=== PATIENT | female | born 1930 | race Hispanic/Latino ===

== ENCOUNTER 2018-02-04 22:47 | Emergency (ER) | payer MEDICARE ==
[2018-02-04 23:00] VITALS: BMI 24.4
[2018-02-04 23:01] VITALS: RESP 18
[2018-02-04] MEDS ORDERED: TDAP Vaccine 0.5 mL Syr IM ONE (23:07)
--- NOTE | 2018-02-04 23:14 | ED PDOC ---
Arrival/HPI - General Chief Complaint: Trauma Time Seen by Provider: 02/04/18 23:06 Historian: Patient - History of Present Illness Narrative History of Present Illness (Text): 02/04/18 23:14 87yr old female presents today with head injury and forehead laceration s/p injury. pt states she was walking and missed the last step and fell forward landing into a chain link fence hitting her head and bracing her fall with her hands. pt denies LOC. pt c/o headache. pt denies dizziness or weakness. pt states she was feeling fine, just missed the last step while walking in the dark and trying to talk to her friends. pt denies cp or sob. pt denies dizziness or weakness. no neck or back pain. pt denies numbness, weakness, tingling in the extremities. pt denies abdominal pain. Time/Duration: Prior to Arrival Symptom Onset: Sudden Symptom Course: Improving Quality: Aching Severity Level: Mild Past Medical History - Provider Review Nursing Documentation Reviewed: Yes - Travel History Have you recently traveled outside [place] w/in the past 3 mons?: No - Tetanus Immunization Tetanus Immunization: Unknown - Reproductive Menopause: Yes - Cardiac Hx Pacemaker: No - Neurological Hx Paralysis: No - Hematological/Oncological Hx Blood Transfusions: No Hx Blood Transfusion Reaction: No - Musculoskeletal/Rheumatological Hx Musculoskeletal Disorders: Yes - Psychiatric Hx Emotional Abuse: No Hx Physical Abuse: No Hx Substance Use: No - Surgical History Other/Comment: Rt hip replacement - Anesthesia Hx Anesthesia: Yes Hx Anesthesia Reactions: No Hx Malignant Hyperthermia: No - Suicidal Assessment Feels Threatened In Home Enviroment: No Family/Social History - Physician Review Nursing Documentation Reviewed: Yes Family/Social History: Unknown Family HX Smoking Status: Never Smoked Hx Alcohol Use: No Hx Substance Use: No Allergies/Home Meds Allergies/Adverse Reactions: Allergies No Known Allergies Allergy (Verified 03/19/14 11:35) Home Medications: Home Meds Medication Instructions Recorded Confirmed Clorazepate Dipotassium 3.75 mg PO PRN PRN 11/24/15 02/04/18 [Tranxene-T] Iron/Folate No.6/Mv,Mins No.40 1 each PO DAILY 11/24/15 02/04/18 [Corvite Fe Tablet] Simvastatin [Zocor] 10 mg PO DAILY 11/24/15 02/04/18 Review of Systems - Review of Systems Constitutional: absent: Fatigue, Fevers Eyes: absent: Vision Changes, Photophobia, Eye Pain ENT: absent: Sore Throat, Sinus Congestion Respiratory: absent: SOB, Cough Cardiovascular: absent: Chest Pain, Palpitations Gastrointestinal: absent: Abdominal Pain, Nausea, Vomiting Genitourinary Female: absent: Dysuria Musculoskeletal: absent: Back Pain, Neck Pain Skin: Laceration Neurological: Headache. absent: Dizziness Psychiatric: absent: Anxiety, Depression Physical Exam Vital Signs Reviewed: Yes Vital Signs Temp Pulse Resp BP Pulse Ox 02/05/18 00:46 98 F 89 18 142/87 98 02/05/18 00:29 98.2 F 95 H 18 142/82 96 02/04/18 22:59 98.1 F 102 H 18 167/82 H 95 Temperature: Afebrile Blood Pressure: Hypertensive Pulse: Tachycardic Respiratory Rate: Normal Appearance: Positive for: Well-Appearing, Non-Toxic, Comfortable Pain Distress: None Mental Status: Positive for: Alert and Oriented X 3 - Systems Exam Head: Present: Tenderness, Swelling, Ecchymosis, Laceration (there is a 1.5cm linear superficial laceration along mid forehead; no active bleeding; + quarter sized hematoma noted to left side of forehead. ) Pupils: Present: PERRL Extroacular Muscles: Present: EOMI Conjunctiva: Present: Normal Ears: Present: Normal, NORMAL TM Mouth: Present: Moist Mucous Membranes, Normal Lips, Normal Tounge. No: Drooling, Trismus Pharnyx: Present: Normal Nose (External): Present: Atraumatic. No: Abrasion, Contusion, Laceration Nose (Internal): Present: Normal Inspection Neck: Present: Normal Range of Motion. No: MIDLINE TENDERNESS, Paraspinal Tenderness Respiratory/Chest: Present: Clear to Auscultation, Good Air Exchange. No: Respiratory Distress, Accessory Muscle Use, Tachypneic, Tender to Palpation Cardiovascular: Present: Regular Rate and Rhythm Abdomen: No: Tenderness, Rebound, Guarding Back: Present: Normal Inspection. No: Midline Tenderness, Paraspinal Tenderness Upper Extremity: Present: Normal ROM. No: Tenderness, Swelling Lower Extremity: Present: Normal Inspection, Normal ROM, Capillary Refill < 2 s Neurological: Present: GCS=15, Speech Normal, Gait Normal Skin: Present: Warm, Dry, Normal Color. No: Rashes Psychiatric: Present: Alert, Oriented x 3 Medical Decision Making ED Course and Treatment: 02/04/18 23:34 87yr old female presents today with head injury and forehead laceration s/p mechanical fall. pt is non toxic well appearing; no distress. laceration irrigated with copious amounts of NS using high pressure irrigation. CT head; FINDINGS: Brain: [id number] atrophy. No intracranial hemorrhage. No mass. Minimal decreased attenuation within periventricular white matter. No edema. Ventricles: No hydrocephalus. Bones/joints: No calvarial fracture. Degenerative changes of temporomandibular joints. Soft tissues: Dermal calcifications. Minimal LEFT frontal soft tissue swelling. Vasculature: Mild atherosclerotic disease of intracranial arteries. Mastoid air cells: No mastoid effusion. IMPRESSION: 1. No intracranial hemorrhage. 2. Nonspecific white matter changes. 3. See facial bone CT report for additional details. 4. Incidental/non-acute findings are described above. ct maxillofacial bones: FINDINGS: Bones/joints: Degenerative changes of temporomandibular joints. Degenerative changes of cervical spine. No acute fracture. Soft tissues: Dermal calcifications. Vasculature: Mild atherosclerotic disease. Orbits: Unremarkable as visualized. Sinuses: Extensive mucosal thickening of LEFT sphenoid sinus. No air-fluid levels. IMPRESSION: 1. No fracture. 2. Incidental/non-acute findings are described above. laceration repair; dermabond. tetanus updated. all results discussed in depth with patient and her son; 02/05/18 00:26 pt reassessment; pt is non toxic well appearing; no distress. stable vitals. pt again denies cp, sob. pt denies dizziness or weakness. no fever/chills. pt denies abdominal pain. Patient was advised to take Tylenol for pain, keep the wounds clean and dry and follow with a primary care physician within the next 2 days. She was advised to return immediately if signs of infection develop or signs of head injury develop Patient verbalizes understanding of discharge instructions and need for immediate followup. pt seen and evaluated by dr. haji impression; mechanical fall, head injury, forehead laceration tylenol every 4 hours as needed for pain keep wound clean and dry follow up with the primary care physician within the next 2 days return immediately if signs of infection develop; fevers, increasing pain, increasing redness, increasing swelling, purulent discharge Return immediately if signs of head injury develop: Continued headaches, dizziness, weakness, nausea, vomiting, changes in behavior or mental status or if any other concerning symptoms develop - RAD Interpretation Radiology Orders: 02/04/18 23:07 HEAD W/O CONTRAST [CT] Stat MAXILLOFACIAL W/O CONTRAST [CT] Stat - Medication Orders Current Medication Orders: Discontinued Medications Acetaminophen (Tylenol 325mg Tab) 650 mg PO STAT STA Stop: 02/04/18 23:08 Last Admin: 02/04/18 23:30 Dose: 650 mg MAR Pain/Vitals Document 02/04/18 23:30 LA (Rec: 02/04/18 23:31 LA [id number]) Pain Reassessment Is This A Pain ReAssessment? No Sleep Is patient sleeping during reassessment? No Presence of Pain Presence of Pain Yes Pain Scale Used Pain Scale Used Numeric Location Pain Location Body Customer Relations Representative Intensity 3 Scale Used Numeric Tetanus/Reduced Diphtheria/Acell Pertussis (Boostrix Vaccine Inj) 0.5 ml IM .ONCE ONE Stop: 02/04/18 23:08 Last Admin: 02/04/18 23:31 Dose: 0.5 ml MAR Immunization Data Document 02/04/18 23:31 LA (Rec: 02/04/18 23:31 LA [id number]) Immunization Data Vaccine Information Sheet Given Yes Immunization Registry Document 02/04/18 23:31 LA (Rec: 02/04/18 23:31 LA [id number]) Immunization Registry Consent Date 07/25/17 Procedure: Wound Repair - Procedure Procedure: Wound Repair: forehead laceration - Performed by Performed by: Mid-level Provider - Indications Indication(s):: Laceration - Location Shape:: Linear Dimensions Length cm: 1.5cm Depth:: Epidermis - Anesthetic Technique Local/Regional Anesthetic:: Other (NONE) - Debris Debris:: None - Irrigated Irrigated with ml of normal saline: NS using high pressure irrigation - Complexity Complexity:: Simple (one layer) - Wound repair method [place]:: Tissue glue, Steri-strips - Complications Complications: none - Patient tolerated procedure Patient Tolerated Procedure:: Well Disposition/Present on Arrival - Present on Arrival Any Indicators Present on Arrival: No History of DVT/PE: No History of Uncontrolled Diabetes: No Urinary Catheter: No History of Decub. Ulcer: No History Surgical Site Infection Following: None - Disposition Have Diagnosis and Disposition been Completed?: Yes Diagnosis: Head injury, Forehead laceration, Fall Disposition: HOME/ ROUTINE Disposition Time: 00:33 Patient Plan: Discharge Condition: GOOD Discharge Instructions (ExitCare): Laceration Repair, Laceration Repair With Glue (DC), Closed Head Injury (DC) Additional Instructions: tylenol every 4 hours as needed for pain keep wound clean and dry follow up with the primary care physician within the next 2 days return immediately if signs of infection develop; fevers, increasing pain, increasing redness, increasing swelling, purulent discharge Return immediately if signs of head injury develop: Continued headaches, dizziness, weakness, nausea, vomiting, changes in behavior or mental status or if any other concerning symptoms develop Referrals: Brandon Harris MD [Family Provider] - Follow up with primary Forms: [employer] [facility] (Khmer)
--- NOTE | 2018-02-05 00:15 | CT ---
EXAM: CT Head Without Intravenous Contrast CLINICAL HISTORY: 87 years old, female; Injury or trauma; Fall; Initial encounter; Abrasion; Forehead; Injury date: 02-04-18; Injury details: Forehead laceration; Additional info: Fall, head injury TECHNIQUE: Axial computed tomography images of the head/brain without intravenous contrast. All CT scans at this facility use one or more dose reduction techniques, viz.: automated exposure control; ma/kV adjustment per patient size (including targeted exams where dose is matched to indication; i.e. head); or iterative reconstruction technique. Coronal and sagittal reformatted images were created and reviewed. COMPARISON: No relevant prior studies available. FINDINGS: Brain: Banl-my-yyacetaz atrophy. No intracranial hemorrhage. No mass. Minimal decreased attenuation within periventricular white matter. No edema. Ventricles: No hydrocephalus. Bones/joints: No calvarial fracture. Degenerative changes of temporomandibular joints. Soft tissues: Dermal calcifications. Minimal LEFT frontal soft tissue swelling. Vasculature: Mild atherosclerotic disease of intracranial arteries. Mastoid air cells: No mastoid effusion. IMPRESSION: 1. No intracranial hemorrhage. 2. Nonspecific white matter changes. 3. See facial bone CT report for additional details. 4. Incidental/non-acute findings are described above.
--- NOTE | 2018-02-05 00:18 | CT ---
EXAM: CT Maxillofacial Without Intravenous Contrast CLINICAL HISTORY: 87 years old, female; Injury or trauma; Fall; Initial encounter; Abrasion; Forehead; Injury date: 02-04-18; Injury details: Forehead laceration; Additional info: Fall, facial injury TECHNIQUE: Axial computed tomography images of the face without intravenous contrast. All CT scans at this facility use one or more dose reduction techniques, viz.: automated exposure control; ma/kV adjustment per patient size (including targeted exams where dose is matched to indication; i.e. head); or iterative reconstruction technique. Coronal and sagittal reformatted images were created and reviewed. COMPARISON: No relevant prior studies available. FINDINGS: Bones/joints: Degenerative changes of temporomandibular joints. Degenerative changes of cervical spine. No acute fracture. Soft tissues: Dermal calcifications. Vasculature: Mild atherosclerotic disease. Orbits: Unremarkable as visualized. Sinuses: Extensive mucosal thickening of LEFT sphenoid sinus. No air-fluid levels. IMPRESSION: 1. No fracture. 2. Incidental/non-acute findings are described above.
[2018-02-05 00:47] VITALS: BP 142/87; PULSE 89; TEMP 98; O2SAT 98
== END 2018-02-05 00:46 | disposition home or self-care (01) ==
LOC: ED 22:47
DX: S01.81XA Laceration without foreign body of other part of head, initial encounter (principal); W10.9XXA Fall (on) (from) unspecified stairs and steps, initial encounter; Z23 Encounter for immunization